=== PATIENT | male | born 1995 | race Caucasian/White ===

== ENCOUNTER 2018-05-06 23:42 | Observation (INO) ==
[2018-05-06] MEDS ORDERED: *HR* LORazepam 2 MG/ML VIAL ONE (23:55)
[2018-05-07] MEDS ORDERED: levETIRAcetam 1,000 MG in 0.9 % Sodium Chloride 100 ML IVPB ONE (00:01)
[2018-05-07] MEDS ORDERED: *HR* LORazepam 2 MG/ML VIAL ONE (00:16)
--- NOTE | 2018-05-07 00:24 | Emergency Department Note ---
Disposition Clinical Impression: Status epilepticus Disposition: Admitted As Inpatient Condition: Fair Time of Disposition: 07:36 General Adult HPI - General Chief complaint: ED Seizure Stated complaint: seizures Time Seen by Provider: 05/06/18 23:52 Source: patient, family, EMS Mode of arrival: ambulatory Limitations: altered mental status Nursing Notes Reviewed: Yes Vital Signs Reviewed: Yes - History of Present Illness HPI Narrative: Patient is a 22-year-old male with a past medical history of seizure disorder brought in by squad for seizures. According to EMS prior to arrival patient was at home resting in bed next to female [employer] certified network associate of 2 days she states that he began having shaking of his upper and lower extremities with eyes rolling to the back of his head and foaming at the mouth. States that the symptoms lasted for which he thinks was possibly 5 minutes. States he notified other people in the house who are aware that the patient had a seizure disorder in the squad was called. Upon arrival squad states the patient appeared to be in a postictal state. They state that in route patient did not have seizure activity until arriving in the EMS bay and the patient began having grand mal seizure-like activity and only lasted 45 seconds and the patient required no medications. Upon arrival to the room patient is postictal in appearance he is somnolent and difficult to arouse he does open his eyes to commands, however he does not follow commands with hand homeowner association manager or moving his toes. Pain Scale: 0 - Related Data Previous Rx's Medication Instructions Recorded Amoxicillin 875 mg PO BID #20 tablet 07/08/15 Hydrocodone/Acetaminophen [[place] 1 tab PO Q4H PRN #14 tab NS 01/03/16 5-325 Tablet] Ondansetron ODT [Zofran ODT] 4 mg PO Q6HR PRN #7 tab 01/03/16 Allergies Allergy/AdvReac Type Severity Reaction Status Date / Time No Known Allergies Allergy Verified 07/08/15 17:00 Limitations: ROS unobtainable due to patients medical condition Past Medical History - Past Medical History Medical history: Reports: seizures Psychiatric history: Reports: anxiety - Social History Smoking Status: Never smoker Smokeless Tobacco Status: No Alcohol use: Reports: none Drug use: Reports: none Physical Exam - General Limitations: altered mental status General appearance: lethargic (post-ictal) - Head Head exam: atraumatic, normocephalic, normal inspection - Eye Eye exam: Present: PERRL (4mm bilateral) - ENT ENT exam: normal exam, normal oropharynx - Neck Neck exam: Present: normal inspection, full ROM, trachea midline - Chest Chest inspection: Present: normal inspection, symmetric chest wall rise. Absent: rash - Respiratory Respiratory exam: Present: normal lung sounds bilaterally. Absent: respiratory distress, wheezes - Cardiovascular Cardiovascular exam: Present: regular rate, normal rhythm, normal heart sounds, +S1, +S2 - Abdominal Exam Abdominal exam: Present: soft, Non-Tender, normal bowel sounds - Extremities Exam Extremities exam: Present: normal inspection, full ROM, normal capillary refill. Absent: tenderness, pedal edema - Back Exam Back exam: Present: normal inspection, full ROM. Absent: tenderness, CVA tenderness (R), CVA tenderness (L) - Neurological Exam Neurological exam: Present: other (Limited due to post-ictal state) - Expanded Neurological Exam Cranial nerves: EOM function (II, III, IV, ): Normal Coma Scale Eye Opening: To Voice Coma Scale Motor Response: Localizes to Pain Coma Scale Verbal Response: Incomprehensible Coma Scale Total: 10 - Psychiatric Psychiatric exam: Present: other (unable to assess) - Skin Skin exam: Present: warm, dry, intact Course Course Narrative: Patient arrived from home by squad for seizure-like activity. Patient was lying in bed with a female that he had known for proximally 2 days of female states that the patient had 5 minutes of upper and lower extremity shaking and eyes joint back in head with foaming at the mouth. States she called the ambulance at that time there are friends of the patient in the home at that time they report a history of seizure disorder. In route the patient had an additional seizure that lasted less than 1 minute before entering the emergency department. While in the emergency department the patient had 2 seizures both approximately 2-3 minutes in length roughly. He required 2 mg dose of Ativan both times. At the time of the second seizure the patient was started on a loading dose of Keppra. - Reevaluation(s) Reevaluation #1: It was at this time that the patient had his fourth seizure. The patient was started on Keppra at this time. Time: 00:24 Reevaluation #2: Patient has had no further seizure activity since Keppra loading. Lab work, head CT and CXR were unremarkable. Upon review of charts patient was seen for seizure-like activity in March 2016 and given f/u. He also has an EEG ordered by Dr. Carrasco that appears to be outpatient. Family in the room is unsure of patient's medication and follow up history. Time: 01:52 Vital Signs Temperature 98.7 F 05/06/18 23:46 Pulse Rate 101 05/06/18 23:46 Respiratory Rate 16 05/06/18 23:46 Blood Pressure 140/72 05/06/18 23:46 O2 Sat by Pulse Oximetry 96 05/06/18 23:46 Temperature 98.6 F 05/07/18 05:55 Pulse Rate 94 05/07/18 05:55 Respiratory Rate 16 05/07/18 05:55 Blood Pressure 115/60 05/07/18 05:55 O2 Sat by Pulse Oximetry 97 05/07/18 05:55 Oxygen Delivery Oxygen Delivery Room Air Medical Decision Making - Medical Records Medical records reviewed: Yes I reviewed the patient's medical records. - Lab Data Lab results reviewed: Yes I reviewed the patient's lab results. Result diagrams: 05/07/18 01:14 05/07/18 01:14 Lab Results 05/07/18 05/07/18 05/07/18 Range/Units 00:48 00:48 01:14 WBC 9.1 (4.3-11.1) K/mcL RBC 5.14 (4.19-5.50) M/mcL Hgb 14.9 (12.9-16.9) g/dL Hct 42.9 (37.5-50.1) % MCV 83.5 (83.0-100.0) fL MCH 29.0 (28.0-33.3) pg MCHC 34.7 (31.6-35.5) g/dL RDW 11.7 (11.5-14.5) % Plt Count 190 (140-400) K/mcL MPV 11.4 (9.4-12.4) fL Immature Gran % 0.3 (0-4) % Seg Neutrophils % 88.5 % Lymphocytes % 7.3 % Monocytes % 3.6 % Eosinophils % 0.1 % Basophils % 0.2 % Neutrophils # 8.1 (1.6-8.9) K/mcL Lymphocytes # 0.7 (0.6-4.6) K/mcL Monocytes # 0.3 (0.0-1.3) K/mcL Eosinophils # 0.0 (0.0-0.6) K/mcL Basophils # 0.0 (0.0-0.2) K/mcL Sodium (136-145) mEq/L Potassium (3.5-5.1) mEq/L Chloride (98-107) mEq/L Carbon Dioxide (23-29) mEq/L BUN (6-20) mg/dL Creatinine (0.70-1.30) mg/dL Est GFR ( Amer) (> 60) Est GFR (Non-Af Amer) (> 60) BUN/Creatinine Ratio (6-26) Glucose (70-105) mg/dL Calculated Osmolality (280-300) Calcium (8.6-10.3) mg/dL Urine Color Yellow (Yellow) Urine Clarity Clear (Clear) Urine pH 5.0 (5.0-8.0) pH Units Ur Specific [place] 1.018 (1.010-1.025) Urine Protein Negative (Neg-Trace) mg/dL Urine Glucose (UA) Normal (Normal) mg/dL Urine Ketones Trace H (Negative) mg/dL Urine Blood Trace H (Negative) Urine Nitrite Negative (Negative) Urine Bilirubin Negative (Negative) Urine Urobilinogen Normal (Normal) mg/dL Ur Leukocyte Esterase Negative (Negative) Urine Microscopic RBC 0-3 (0-3) per hpf Urine Microscopic WBC 0-3 (0-3) per hpf Ur Squamous Epith Cells Many H (None-Few) per lpf Urine Bacteria None Seen (None-Few) per hpf Hyaline Casts Few (None-Few) per lpf Urine Opiates Screen Negative (Yjhcie=906) ng/mL Ur Barbiturates Screen Negative (Efdwpd=482) ng/mL Ur Phencyclidine Scrn Negative (Cutoff=25) ng/mL Ur Amphetamines Screen Negative (Owptsq=0106) ng/mL U Benzodiazepines Scrn Negative (Ehuhwz=525) ng/mL Urine Cocaine Screen Negative (Cutoff= 300) ng/mL U Marijuana (THC) Screen Negative (Cutoff = 50) ng/mL Ur Drug Screen Interp See Below 05/07/18 Range/Units 01:14 WBC (4.3-11.1) K/mcL RBC (4.19-5.50) M/mcL Hgb (12.9-16.9) g/dL Hct (37.5-50.1) % MCV (83.0-100.0) fL MCH (28.0-33.3) pg MCHC (31.6-35.5) g/dL RDW (11.5-14.5) % Plt Count (140-400) K/mcL MPV (9.4-12.4) fL Immature Gran % (0-4) % Seg Neutrophils % % Lymphocytes % % Monocytes % % Eosinophils % % Basophils % % Neutrophils # (1.6-8.9) K/mcL Lymphocytes # (0.6-4.6) K/mcL Monocytes # (0.0-1.3) K/mcL Eosinophils # (0.0-0.6) K/mcL Basophils # (0.0-0.2) K/mcL Sodium 138 (136-145) mEq/L Potassium 3.9 (3.5-5.1) mEq/L Chloride 108 H (98-107) mEq/L Carbon Dioxide 21 L (23-29) mEq/L BUN 7 (6-20) mg/dL Creatinine 0.99 (0.70-1.30) mg/dL Est GFR ( Amer) > 60 (> 60) Est GFR (Non-Af Amer) > 60 (> 60) BUN/Creatinine Ratio 7 (6-26) Glucose 131 H (70-105) mg/dL Calculated Osmolality 286 (280-300) Calcium 8.7 (8.6-10.3) mg/dL Urine Color (Yellow) Urine Clarity (Clear) Urine pH (5.0-8.0) pH Units Ur Specific [place] (1.010-1.025) Urine Protein (Neg-Trace) mg/dL Urine Glucose (UA) (Normal) mg/dL Urine Ketones (Negative) mg/dL Urine Blood (Negative) Urine Nitrite (Negative) Urine Bilirubin (Negative) Urine Urobilinogen (Normal) mg/dL Ur Leukocyte Esterase (Negative) Urine Microscopic RBC (0-3) per hpf Urine Microscopic WBC (0-3) per hpf Ur Squamous Epith Cells (None-Few) per lpf Urine Bacteria (None-Few) per hpf Hyaline Casts (None-Few) per lpf Urine Opiates Screen (Xblimh=135) ng/mL Ur Barbiturates Screen (Bfsnbi=506) ng/mL Ur Phencyclidine Scrn (Cutoff=25) ng/mL Ur Amphetamines Screen (Rahdgk=6846) ng/mL U Benzodiazepines Scrn (Bekrxr=121) ng/mL Urine Cocaine Screen (Cutoff= 300) ng/mL U Marijuana (THC) Screen (Cutoff = 50) ng/mL Ur Drug Screen Interp - Radiology Data Radiology results reviewed: Yes I reviewed the patient's radiology results. Chest X-Ray 05/07/18 00:00 IMPRESSION: Negative portable chest. D/ / Elvin Lucia MD / Elvin Lucia MD Interpreting Provider: Elvin Lucia MD Head CT 05/07/18 00:23 IMPRESSION: No acute intracranial abnormality. D/ / Toro Nunes / Toro Nunes Interpreting Provider: Toro Nunes - EKG Data EKG #1 EKG attestation: Yes I reviewed and interpreted this EKG. EKG results narrative: EKG done at 00:48 shows sinus rhythm at a rate of 96 bpm. Normal axis. Nonspecific ST T-wave abnormalities.
[2018-05-07 00:57] LABS: Bilirubin,Urine Negative (Negative); Blood,Urine Trace (Negative); Clarity,Urine Clear (Clear); Color,Urine Yellow (Yellow); Glucose,Urine (UA) Normal (Normal); Ketones,Urine Trace mg/dL (Negative); Leukocyte Esterase,Urine Negative (Negative); Nitrite,Urine Negative (Negative); Protein,Urine Negative (Neg-Trace); Specific Gravity,Urine 1.018 (1.010-1.025); Urobilinogen,Urine Normal (Normal)
[2018-05-07 00:58] LABS: Bacteria,Urine None Seen per hpf (None-Few); Hyaline Casts,Urine Few per lpf (None-Few); RBC,Urine 0-3 per hpf (0-3); Squamous Epithelial Cell,Urine Many per lpf (None-Few); WBC,Urine 0-3 per hpf (0-3)
[2018-05-07 01:07] LABS: Amphetamine Screen,Urine Negative ng/mL (Cutoff=1000); Barbiturate Screen,Urine Negative ng/mL (Cutoff=200); Benzodiazepines Screen,Urine Negative ng/mL (Cutoff=200); Cannabinoid Screen,Urine Negative ng/mL (Cutoff = 50); Cocaine Screen,Urine Negative ng/mL (Cutoff= 300); Opiate Screen,Urine Negative ng/mL (Cutoff=300); Phencyclidine Screen,Urine Negative ng/mL (Cutoff=25)
[2018-05-07 01:27] LABS: Basophils % 0.2 %; Eosinophils % 0.1 %; Hematocrit 42.9 % (37.5-50.1); Hemoglobin 14.9 g/dL (12.9-16.9); Immature Granulocytes % 0.3 % (0-4); Lymphocytes # 0.7 K/mcL (0.6-4.6); Lymphocytes % 7.3 %; Mean Corpuscular HGB Conc 34.7 g/dL (31.6-35.5); Mean Corpuscular Volume 83.5 fL (83.0-100.0); Mean Platelet Volume 11.4 fL (9.4-12.4); Monocytes # 0.3 K/mcL (0.0-1.3); Monocytes % 3.6 %; Neutrophils # 8.1 K/mcL (1.6-8.9); Platelet Count 190 K/mcL (140-400); Red Blood Count 5.14 M/mcL (4.19-5.50); Red Cell Distribution Width 11.7 % (11.5-14.5); Segmented Neutrophils % 88.5 %
[2018-05-07 01:46] LABS: BUN/Creatinine Ratio 7 (6-26); Blood Urea Nitrogen 7 mg/dL (6-20); Calcium 8.7 mg/dL (8.6-10.3); Carbon Dioxide 21 mEq/L (23-29); Chloride 108 mEq/L (98-107); Glucose 131 mg/dL (70-105); Osmolality,Calculated 286 (280-300); Potassium 3.9 mEq/L (3.5-5.1); Sodium 138 mEq/L (136-145); eGFR For Non-African Americans > 60 (> 60)
--- NOTE | 2018-05-07 02:21 | Emergency Department Note ---
Disposition Clinical Impression: Status epilepticus Disposition: Admitted As Inpatient Condition: Fair Referrals: NONE,PCP [Primary Care Provider] - Forms: ED Satisfaction Letter General Adult HPI - General Chief complaint: ED Seizure Stated complaint: seizures Time Seen by Provider: 05/06/18 23:52 Source: patient, family, EMS Mode of arrival: ambulatory Limitations: altered mental status Nursing Notes Reviewed: Yes Vital Signs Reviewed: Yes - History of Present Illness Pain Scale: 0 - Related Data Previous Rx's Medication Instructions Recorded Amoxicillin 875 mg PO BID #20 tablet 07/08/15 Hydrocodone/Acetaminophen [[place] 1 tab PO Q4H PRN #14 tab NS 01/03/16 5-325 Tablet] Ondansetron ODT [Zofran ODT] 4 mg PO Q6HR PRN #7 tab 01/03/16 Allergies Allergy/AdvReac Type Severity Reaction Status Date / Time No Known Allergies Allergy Verified 07/08/15 17:00 Past Medical History - Past Medical History Medical history: Reports: seizures Psychiatric history: Reports: anxiety - Social History Smoking Status: Never smoker Smokeless Tobacco Status: No Alcohol use: Reports: none Drug use: Reports: none Physical Exam - General Limitations: altered mental status General appearance: lethargic (post-ictal) Course - Consultations Consultation #1: Case discussed with the hospitalist, Dr. Alas, and he accepted admission of the patient. Time: 02:18 Vital Signs Temperature 98.7 F 05/06/18 23:46 Pulse Rate 101 05/06/18 23:46 Respiratory Rate 16 05/06/18 23:46 Blood Pressure 140/72 05/06/18 23:46 O2 Sat by Pulse Oximetry 96 05/06/18 23:46 Temperature 98.7 F 05/06/18 23:46 Pulse Rate 93 05/07/18 01:40 Respiratory Rate 18 05/07/18 01:40 Blood Pressure 120/73 05/07/18 01:40 O2 Sat by Pulse Oximetry 100 05/07/18 01:40 Oxygen Delivery Oxygen Delivery Oximizer Medical Decision Making - Medical Records Medical records reviewed: Yes I reviewed the patient's medical records. - Lab Data Lab results reviewed: Yes I reviewed the patient's lab results. Result diagrams: 05/07/18 01:14 05/07/18 01:14 Lab Results 05/07/18 05/07/18 05/07/18 Range/Units 00:48 00:48 01:14 WBC 9.1 (4.3-11.1) K/mcL RBC 5.14 (4.19-5.50) M/mcL Hgb 14.9 (12.9-16.9) g/dL Hct 42.9 (37.5-50.1) % MCV 83.5 (83.0-100.0) fL MCH 29.0 (28.0-33.3) pg MCHC 34.7 (31.6-35.5) g/dL RDW 11.7 (11.5-14.5) % Plt Count 190 (140-400) K/mcL MPV 11.4 (9.4-12.4) fL Immature Gran % 0.3 (0-4) % Seg Neutrophils % 88.5 % Lymphocytes % 7.3 % Monocytes % 3.6 % Eosinophils % 0.1 % Basophils % 0.2 % Neutrophils # 8.1 (1.6-8.9) K/mcL Lymphocytes # 0.7 (0.6-4.6) K/mcL Monocytes # 0.3 (0.0-1.3) K/mcL Eosinophils # 0.0 (0.0-0.6) K/mcL Basophils # 0.0 (0.0-0.2) K/mcL Sodium (136-145) mEq/L Potassium (3.5-5.1) mEq/L Chloride (98-107) mEq/L Carbon Dioxide (23-29) mEq/L BUN (6-20) mg/dL Creatinine (0.70-1.30) mg/dL Est GFR ( Amer) (> 60) Est GFR (Non-Af Amer) (> 60) BUN/Creatinine Ratio (6-26) Glucose (70-105) mg/dL Calculated Osmolality (280-300) Calcium (8.6-10.3) mg/dL Urine Color Yellow (Yellow) Urine Clarity Clear (Clear) Urine pH 5.0 (5.0-8.0) pH Units Ur Specific [place] 1.018 (1.010-1.025) Urine Protein Negative (Neg-Trace) mg/dL Urine Glucose (UA) Normal (Normal) mg/dL Urine Ketones Trace H (Negative) mg/dL Urine Blood Trace H (Negative) Urine Nitrite Negative (Negative) Urine Bilirubin Negative (Negative) Urine Urobilinogen Normal (Normal) mg/dL Ur Leukocyte Esterase Negative (Negative) Urine Microscopic RBC 0-3 (0-3) per hpf Urine Microscopic WBC 0-3 (0-3) per hpf Ur Squamous Epith Cells Many H (None-Few) per lpf Urine Bacteria None Seen (None-Few) per hpf Hyaline Casts Few (None-Few) per lpf Urine Opiates Screen Negative (Hlyexv=847) ng/mL Ur Barbiturates Screen Negative (Zdrizl=529) ng/mL Ur Phencyclidine Scrn Negative (Cutoff=25) ng/mL Ur Amphetamines Screen Negative (Pjivnq=4959) ng/mL U Benzodiazepines Scrn Negative ([place]=738) ng/mL Urine Cocaine Screen Negative (Cutoff= 300) ng/mL U Marijuana (THC) Screen Negative (Cutoff = 50) ng/mL Ur Drug Screen Interp See Below 05/07/18 Range/Units 01:14 WBC (4.3-11.1) K/mcL RBC (4.19-5.50) M/mcL Hgb (12.9-16.9) g/dL Hct (37.5-50.1) % MCV (83.0-100.0) fL MCH (28.0-33.3) pg MCHC (31.6-35.5) g/dL RDW (11.5-14.5) % Plt Count (140-400) K/mcL MPV (9.4-12.4) fL Immature Gran % (0-4) % Seg Neutrophils % % Lymphocytes % % Monocytes % % Eosinophils % % Basophils % % Neutrophils # (1.6-8.9) K/mcL Lymphocytes # (0.6-4.6) K/mcL Monocytes # (0.0-1.3) K/mcL Eosinophils # (0.0-0.6) K/mcL Basophils # (0.0-0.2) K/mcL Sodium 138 (136-145) mEq/L Potassium 3.9 (3.5-5.1) mEq/L Chloride 108 H (98-107) mEq/L Carbon Dioxide 21 L (23-29) mEq/L BUN 7 (6-20) mg/dL Creatinine 0.99 (0.70-1.30) mg/dL Est GFR ( Amer) > 60 (> 60) Est GFR (Non-Af Amer) > 60 (> 60) BUN/Creatinine Ratio 7 (6-26) Glucose 131 H (70-105) mg/dL Calculated Osmolality 286 (280-300) Calcium 8.7 (8.6-10.3) mg/dL Urine Color (Yellow) Urine Clarity (Clear) Urine pH (5.0-8.0) pH Units Ur Specific [place] (1.010-1.025) Urine Protein (Neg-Trace) mg/dL Urine Glucose (UA) (Normal) mg/dL Urine Ketones (Negative) mg/dL Urine Blood (Negative) Urine Nitrite (Negative) Urine Bilirubin (Negative) Urine Urobilinogen (Normal) mg/dL Ur Leukocyte Esterase (Negative) Urine Microscopic RBC (0-3) per hpf Urine Microscopic WBC (0-3) per hpf Ur Squamous Epith Cells (None-Few) per lpf Urine Bacteria (None-Few) per hpf Hyaline Casts (None-Few) per lpf Urine Opiates Screen (Ddyhcr=296) ng/mL Ur Barbiturates Screen (Jutwgo=145) ng/mL Ur Phencyclidine Scrn (Cutoff=25) ng/mL Ur Amphetamines Screen (Jiargo=9879) ng/mL U Benzodiazepines Scrn (Ayoxgh=037) ng/mL Urine Cocaine Screen (Cutoff= 300) ng/mL U Marijuana (THC) Screen (Cutoff = 50) ng/mL Ur Drug Screen Interp - Radiology Data Radiology results reviewed: Yes I reviewed the patient's radiology results. Chest X-Ray 05/07/18 00:00 IMPRESSION: Negative portable chest. D/ / Elvin Lucia MD / Elvin Lucia MD Interpreting Provider: Elvin Lucia MD Head CT 05/07/18 00:23 IMPRESSION: No acute intracranial abnormality. D/ / Toro uNnes / Toro Nunes Interpreting Provider: Toro Nunes Critical Care Time Critical Care Time: Yes Total Critical Care Time: 40 Attestation: Critical care performed: Time is exclusive of separately billable procedures. Time includes: direct patient care, patient reassessment, coordination of patient care, interpretation of data (laboratory data, radiology data, and respiratory data), review of patient's medical records, medical consultation and documentation of patient care. Procedures included in critical care time: Procedures excluded from critical care time: Attestation Statement - Attestation Attestation: I, Eric Hudson MD, personally evaluated this patient and discussed their management with the resident physician. I reviewed the resident's note and agree with the documented findings, medical decision making, and plan of care. 22-year-old male with known history of seizure disorder presents to the emergency department postictal after he had a seizure at home. He was with a female checker loader and they were in bed when he had a generalized seizure. She reports it lasted about 5-10 minutes. She called EMS. EMS reports that just before arrival here he had seizure activity while in the squad which lasted about 45 seconds. Patient was postictal on arrival to the emergency department and shortly after arrival he had a generalized grand mal tonic-clonic seizure which lasted about 1/2-2 minutes. He received Ativan 2 mg IV and the seizure activity resolved. A short time later while still postictal he had another generalized grand mal tonic-clonic seizure which lasted about 1-1-1/2 minutes. Again he received Ativan 2 mg IV and the seizure activity resolved. He was then given Keppra 1 g IV. He has had no further seizure activity while in the emergency department since receiving the Keppra. Patient unable to provide any history and his female checker loader does not really know anything about him. Later some friends arrived and they reported that he just started having seizures about 2 years ago. He is on some medication for the seizures but they are unsure if he takes it appropriately. EMS reported that he was on Neurontin for the seizures. On examination patient is a well-developed well-nourished young male. Postictal on arrival. Nonresponsive to verbal or physical stimuli. Eyes are deviated upward into the right. Breath sounds are clear and equal bilaterally. Heart regular with a mild tachycardia. Abdomen is soft with present bowel sounds. Labs reviewed. Head CT negative. Chest x-ray negative. Dr. Garrido discussed with the neurologist [employer] headgate operator, Dr. Broderick, and he recommended admission by the hospitalist and neurology will consult on the patient in the hospital. The hospitalist, Dr. Alas, was consulted and accepted admission of the patient.
[2018-05-07] MEDS ORDERED: *HR* HYDROcodone/Acet 5/325 mg TABLET PO PRN (03:27)
[2018-05-07] MEDS ORDERED: Naloxone 0.4 MG/ML INJ IVP PRN (03:27)
[2018-05-07] MEDS ORDERED: Ondansetron 4 MG/2 ML VIAL IVP PRN (03:36)
--- NOTE | 2018-05-07 03:41 | Internal Med History&Physical ---
<Rachelle Dao - Last Filed: 05/07/18 03:44> Date of Encounter: 05/07/18 Time of Encounter: 03:37 Internal Medicine - H&P: HPI Chief complaint: Seizure Admitted From: Emergency Dept History of present illness: Mr. Lara is a 22 year old male with significant PMHx of seizures for the past three years currently taking gabapentin for seizure prophylaxis admitted for seizures. During my assessment patient remained post-ictal therefore history of present illness was obtained from the ER physician and family members at bedside. According to the ED, the patient had a 5 minute generalized seizure this evening at home while resting in bed. EMS was called and he was no longer seizing when they arrived. When patient arrived to the ED he had 1 seizure that lasted approximately 45 seconds and spontaneously aborted with no medical intervention. After this patient had 2 more seizures each lasting approximately 2 minutes. Both of these seizures needed 2 mg IV ativan to be aborted. Patient has remained post-ictal since. The ED consulted neurology who agreed to load the patient with [address] head and chest xray completed in ED was within normal limits. Negative urine drug screen. No obvious electrolyte abnormalities. Past Med Surg Social Fam HX - Past Medical History Source: old records reviewed Medical history: seizures Psychiatric history: anxiety - Social History Smoking Status: Never smoker Smokeless Tobacco Status: No Alcohol use: none Drug use: none Internal Medicine - H&P: Meds RX: Amoxicillin 875 mg PO BID #20 tablet 07/08/15 [Rx] Hydrocodone/Acetaminophen [[place] 5-325 Tablet] 1 tab PO Q4H PRN #14 tab NS 01/03/16 [Rx] Ondansetron ODT [Zofran ODT] 4 mg PO Q6HR PRN #7 tab 01/03/16 [Rx] Allergy/AdvReac Type Severity Reaction Status Date / Time No Known Allergies Allergy Verified 07/08/15 17:00 ROS unobtainable: due to mental status All Systems PM: A 10-system review of systems was performed and is negative for pertinent findings except as documented above in the HPI. - Constitutional Vitals: Temp Pulse Resp BP Pulse Ox 98.7 F 93 18 120/73 100 05/06/18 23:46 05/07/18 01:40 05/07/18 01:40 05/07/18 01:40 05/07/18 01:40 Exam: Patient is somnolent and post-ictal - Head Head exam: Present: atraumatic, normal inspection, normocephalic - Eye Eye exam: Absent: conjunctival injection, scleral icterus Pupils: Present: PERRL. Absent: fixed - ENT ENT exam: Present: mucous membranes moist - Respiratory Respiratory exam: Present: CTAB - Cardiovascular Cardiovascular exam: Present: tachycardia. Absent: irregular rhythm - GI/Abdominal GI/Abdominal exam: Present: soft. Absent: distended, firm - Extremities Exam Extremities exam: Present: normal inspection, warm - Neurological Exam Additional comments: Patient post-ictal in the room, rolling around in the bed with no obvious focal deficit in extremities - Skin Skin exam: Present: warm Internal Med - H&P Results - Labs CBC & Chem 7: 05/07/18 01:14 05/07/18 01:14 Labs: Short CBC 05/07/18 Range/Units 01:14 WBC 9.1 (4.3-11.1) K/mcL Hgb 14.9 (12.9-16.9) g/dL Hct 42.9 (37.5-50.1) % Plt Count 190 (140-400) K/mcL Neutrophils # 8.1 (1.6-8.9) K/mcL BMP 05/07/18 01:14 Sodium 138 Potassium 3.9 Chloride 108 H Carbon Dioxide 21 L BUN 7 Creatinine 0.99 Glucose 131 H Calcium 8.7 Urine 05/07/18 Range/Units 00:48 Urine Color Yellow (Yellow) Urine Clarity Clear (Clear) Urine pH 5.0 (5.0-8.0) pH Units Ur Specific [place] 1.018 (1.010-1.025) Urine Protein Negative (Neg-Trace) mg/dL Urine Glucose (UA) Normal (Normal) mg/dL - Impressions ITS Impressions Chest X-Ray 05/07/18 00:00 IMPRESSION: Negative portable chest. D/ / Elvin Lucia MD / Elvin Lucia MD Interpreting Provider: Elvin Lucia MD Head CT 05/07/18 00:23 IMPRESSION: No acute intracranial abnormality. D/ / Toro Nunes / Toro Nunes Interpreting Provider: Toro Nunes - Assessment and plan (1) Seizure Current Visit: Yes Status: Acute Assessment and plan: Patient with known seizure disorder, supposedly taking gabapentin for seizure control Normal CT head in ED Normal MRI less than 3 months ago Patient loaded with keppra in ED Neuro consulted Seizure precautions Ativan PRN seizure activity (2) Post-ictal state Current Visit: Yes Status: Acute Assessment and plan: Patient remains post-ictal on exam Normal CT head in ED Normal MRI less than 3 months ago Neuro consulted - Time Spent With Patient Total time spent is greater than 50% in coordination of care (as documented) at patient's floor/unit and/or counseling patient: BradleyLaMariomitakimberlyn - Last Filed: 05/07/18 06:14> Date of Encounter: 05/07/18 Internal Medicine - H&P: HPI History of present illness: Mr. Lara is a 22 year old male All Systems PM: A 10-system review of systems was performed and is negative for pertinent findings except as documented above in the HPI. - Constitutional Vitals: Temp Pulse Resp BP Pulse Ox 98.6 F 94 16 115/60 97 05/07/18 05:55 05/07/18 05:55 05/07/18 05:55 05/07/18 05:55 05/07/18 05:55 Internal Med - H&P Results - Labs CBC & Chem 7: 05/07/18 01:14 05/07/18 01:14 Labs: Short CBC 05/07/18 Range/Units 01:14 WBC 9.1 (4.3-11.1) K/mcL Hgb 14.9 (12.9-16.9) g/dL Hct 42.9 (37.5-50.1) % Plt Count 190 (140-400) K/mcL Neutrophils # 8.1 (1.6-8.9) K/mcL BMP 05/07/18 01:14 Sodium 138 Potassium 3.9 Chloride 108 H Carbon Dioxide 21 L BUN 7 Creatinine 0.99 Glucose 131 H Calcium 8.7 Urine 05/07/18 Range/Units 00:48 Urine Color Yellow (Yellow) Urine Clarity Clear (Clear) Urine pH 5.0 (5.0-8.0) pH Units Ur Specific [place] 1.018 (1.010-1.025) Urine Protein Negative (Neg-Trace) mg/dL Urine Glucose (UA) Normal (Normal) mg/dL - Impressions ITS Impressions Chest X-Ray 05/07/18 00:00 IMPRESSION: Negative portable chest. D/ / Elvin Lucia MD / Elvin Lucia MD Interpreting Provider: Elvin Lucia MD Head CT 05/07/18 00:23 IMPRESSION: No acute intracranial abnormality. D/ / Toro Nunes / Toro Nunes Interpreting Provider: Toro Nunes - Time Spent With Patient Total time spent is greater than 50% in coordination of care (as documented) at patient's floor/unit and/or counseling patient: - Attending Attestation I performed a history and physical exam of the patient and discussed management with the resident. I reviewed the resident's note and agree with the documented findings and plan of care. Alireza James Lara who is a 22-year-old man with known seizure disorder who is brought in by ambulance after suffering a seizure at home. He had another seizure episode on rounds witnessed by EMS lasting about 45 seconds. He was notably postictal upon arrival to the ED and subsequently suffered 2 more generalized grand mal tonic-clonic seizure lasting just under 2 minutes. He received 4 mg of lorazepam and was given a loading dose of levetiracetam. No further seizure activity was no witnessed in the ER and is now admitted for further observation in a monitored setting. It is reported that he developed seizures about 2 years ago and it is unclear if he has been adherent to his medications. Physical exam remarkable for well- developed white male sleeping comfortably; popular rash noted on back. Unable t o evaluate psychiatric state due to somnolence. Lab work was grossly unremarkable. Unable to obtain family history due to current mental status. Will place on fall, seizure and aspiration precautions. Maintenance fluids. Lorazepam prn. Verify home medications. Neurology evaluation. Rest of management per residents note. KAYLA CONWAY.
[2018-05-07] MEDS ORDERED: *HR* LORazepam 2 MG/ML VIAL IVP PRN (03:45)
[2018-05-07] MEDS: *HR* Heparin 5,000 UNIT/ML VIAL SQ SCH ×2 (06:18→17:55)
[2018-05-07] MEDS: 0.9 % Sodium Chloride 1,000 ML IVC SCH ×2 (06:18→16:17)
--- NOTE | 2018-05-07 09:35 | Neurology - Consult Note ---
Addendum entered and electronically signed by Josh Broderick MD 05/07/18 14:44: Patient seen and examined and i agree with Dr. Jesús Del Castillo's history taking, physical examination assessment and plan outline below. Please note that the physical examination portion is limited due to patient being very sleepy and full physical examination is document in the report made by me. Original Note: Date of Encounter: 05/07/18 Time of Encounter: 09:34 Assessment and Plan (1) Seizure Current Visit: Yes Status: Acute - Patient presented after having a seizure at home - On arrival to EMS [place], patient had a grand mal seizure-like activity, which lasted 45 seconds - Per chart review, while patient was in the emergency department, he had a total of 2 seizures, both approximately 2-3 minutes in length - Required a dose of Ativan 2 mg both times - At the time of the second seizure, patient was started on a loading dose of Keppra, 1000 mg - CT scan of the head showed no acute intracranial abnormality - Known history of seizures for the last 3 years; last one was approximately one year ago Plan: - EEG is ordered for this morning - Continue seizure precautions - Ativan when necessary for seizure activity - Patient will likely require skilled nursing medical therapy on seizure medication (2) Post-ictal state Current Visit: Yes Status: Acute - Plan as above History of Present Illness HPI: Gómez Lara is a 22 year old male with a PMH of seizure disorder for the last 3 years who presented to [facility] ED on 05/06/18 for seizures. According to EMS, prior to arrival the patient was at home resting in his bed when he began shaking in his upper and lower extremities with his eyes rolling to the back of his head and foaming at the mouth. Symptoms lasted approximately 5 minutes. This was observed by a female prepress operator. When EMS arrived, patient appeared to be in a postictal state. When patient arrived into the EMS [place], patient began having grand mal seizure-like activity, which lasted 45 seconds. He required no medications at that time. Per chart review, patient had a total of 2 seizures, both approximately 2-3 minutes in length while in the ER. He required 2 mg dose of Ativan both times. At the time of the second seizure, patient was started on a loading dose of Keppra. Vital signs on arrival were significant for an elevated heart rate at 101. All other vitals were within normal limits. CT sca n of the head demonstrated no acute intracranial abnormality. Toxicology was negative. EEG has been ordered; currently pending. Patient is currently on Ativan 2 mg IV as needed. Patient seen and examined at bedside; patient is very somnolent and lethargic. Answers very few questions, then falls back asleep. Unable to stay awake for more than 10-20 seconds. Guardian is present at bedside, as well as witnesses from the night the patient began seizing. According to them, patient had approximately 5-10 episodes of seizure-like activity before coming into the hospital. Per the guardian, patient's last seizure was approximately 1 year ago. He has not had any seizure activity in the year leading up to the present admission. She states that he has been under a great deal of stress lately due to a dental procedure that he has coming up. Review of systems is limited, as patient is not able to answer many questions. He states that he is feeling fine. Past Med Surg Social Fam HX - Past Medical History Medical history: seizures Psychiatric history: anxiety - Social History Smoking Status: Never smoker Smokeless Tobacco Status: No Alcohol use: none Drug use: none Medications and Allergies Baclofen [Lioresal] 10 mg PO BID 05/07/18 [History] Allergy/AdvReac Type Severity Reaction Status Date / Time No Known Allergies Allergy Verified 07/08/15 17:00 ROS unobtainable: due to mental status (Patient is very somnolent; cannot stay awake for more than 10-20 seconds) All Systems: The remainder of the systems were reviewed and are negative Physical Examination - Vital Signs Vital Signs: Initial Vital Signs Temp Pulse Resp BP Pulse Ox 98.7 F 101 16 140/72 96 05/06/18 23:46 05/06/18 23:46 05/06/18 23:46 05/06/18 23:46 05/06/18 23:46 - Exam Exam: Exam is limited due to the patient being somnolent No acute distress No bite ward observed on the tongue - Constitutional General appearance: comfortable, other (Somnolent) - Neurologic Mental Status Examination: drowsy (Exam is limited; no acute distress), lethargic Results - Laboratory Findings CBC and BMP: 05/07/18 01:14 05/07/18 01:14 Abnormal lab findings: Abnormal lab results Chloride 108 mEq/L (98-107) H 05/07/18 01:14 Carbon Dioxide 21 mEq/L (23-29) L 05/07/18 01:14 Glucose 131 mg/dL (70-105) H 05/07/18 01:14 Urine Ketones Trace mg/dL (Negative) H 05/07/18 00:48 Urine Blood Trace (Negative) H 05/07/18 00:48 Ur Squamous Epith Cells Many per lpf (None-Few) H 05/07/18 00:48 Consult Discharge Plan - Plan Referrals: Susan Thompson MD [Non-Partnered Physician] - 05/21/18 9:30 am
--- NOTE | 2018-05-07 12:54 | EEG/EMG/Oth Biometrics Report ---
EEG Procedure Report Date of procedure: 05/07/18 EEG Procedure: Routine EEG Procedure Note: This EEG was acquired with standard international 10-20 electrode placement system plus EKG recording. The background activity during this tracing was characterized by the presence of posteriorly dominant alpha rhythm with best frequency up to 11 Hz. The background activity was reactive to eye openings. Sleep stages were characterized by the presence of background and fragmentation, K complexes, vertex waves, and sleep spindles. There are no electrographic seizures identified during this tracing. There are no epileptiform discharges or focal slowing noted during this tracing. Photic stimulation produced no abnormalities. Hyperventilation procedure was not performed during the study. EKG tracing showed no significant cardiac dysrhythmias. Impression: This is a normal awake and asleep EEG. Clinical correlation: Normal EEGs, however, do not exclude epilepsy. Clinical correlation is advised.
--- NOTE | 2018-05-07 14:33 | Neurology - Consult Note ---
Date of Encounter: 05/07/18 Time of Encounter: 14:18 Assessment and Plan (1) Seizure Current Visit: Yes Status: Acute Patient has developed few recurrent seizure likely with motor activity and postictal phenomenon initially concerned for status epilepticus but Ativan IVx1 seemed to controlled the seizure and patient has had no more recurrent seizure activity over night and he is current on Keppra 500mg bid after 1g loading dose. Patient has similar seizures in the last three years and he certainly has had recurrent episodes therefore would at time start him on antiepileptic therapy, care home. Will keep on 500mg of keppra bid and he is to follow up with Dr. Mati Carrasco in the next few weeks to adjust dosage or pursue further testing if necessary. No significant provoking factors identified at this time. Laboratory testing including electrolytes, CBC and uringe drug screen are unremarkable. Patient is still drowsy but from neurology standpoint he is okay to be discharged. History of Present Illness Chief complaint: recurrent seizure activity HPI: Mr. Lara is a 22 year old male PMH significant for history of seizure disorder not on antiepileptic therapy, spasticiity, who presented to the ER with few recurrent seizure like activity. Patient has known history of seizure like activity that occurred about 3 years ago. Patient is currently very drowsy and won't not provide useful information. Her aunt is here at the bedside but she did not witness the episodes. Reportedly the patient developed seizure likely activity and was postictal. But no tongue biting and urinary incontinence noted. No significant provoking factors reported. Aunt mentions that when the patient was born his mother were on drugs and used alcohol and smoked. Patients last known seizure was about one year ago. That was the reason he was not suggested antiepileptic therapy when he saw Dr. Mati Carrasco for spasticity who started him on Baclofen during 02/2018. Had MRI of brain done in 12/2017 which showed no acute intracranial abnormality. EEG done today showed normal awake and asleep EEG In the ER, patient CT of head showed no acute intracranial abnormality. He was given loading dose of Keppra 1000mg IVx1 and then continued Keppra 500mg bid. Past Med Surg Social Fam HX - Past Medical History Medical history: seizures Psychiatric history: anxiety - Social History Smoking Status: Never smoker Smokeless Tobacco Status: No Alcohol use: none Drug use: none Medications and Allergies Baclofen [Lioresal] 10 mg PO BID 05/07/18 [History] Allergy/AdvReac Type Severity Reaction Status Date / Time No Known Allergies Allergy Verified 07/08/15 17:00 All Systems: The remainder of the systems were reviewed and are negative Physical Examination - Vital Signs Vital Signs: Initial Vital Signs Temp Pulse Resp BP Pulse Ox 98.7 F 101 16 140/72 96 05/06/18 23:46 05/06/18 23:46 05/06/18 23:46 05/06/18 23:46 05/06/18 23:46 - Constitutional General appearance: comfortable (Patient very drowsy but arousable) - Neurologic Sensorimotor examination: other (Grossly intact) Detailed motor examination: grossly full strength in all extremities (Patient is very drowsy and he moves all extremities when stimulated. has spasticity to legs which is chronic in nature) Detailed sensory examination: other (Grossly intact) Reflexes: Biceps: 3+, Triceps: 3+, Brachioradialis: 3+, Patella: 3+, Achilles: 3+ Mental Status Examination: drowsy (Patient easily arousable but does not seem to be interested in talking. Drift back to sleep when not stimulated), opens eyes to voice Cranial nerve examination: PERRL, EOMI, visual rios intact (Unable to assess due to drowsiness), corneal reflexes brisk symmetrically, sensory to face intact, mastication intact, no facial asymmetry is present, no dysarthria, hearing is intact symmetrically, soft palate elevates bilaterally upon phona tion, gag reflex intact, flexes SCM and trapezius muscles symmetrically with full power, tongue protrudes midline, no atrophy or facial fasiculations present Results - Laboratory Findings CBC and BMP: 05/07/18 01:14 05/07/18 01:14 Abnormal lab findings: Abnormal lab results Chloride 108 mEq/L (98-107) H 05/07/18 01:14 Carbon Dioxide 21 mEq/L (23-29) L 05/07/18 01:14 Glucose 131 mg/dL (70-105) H 05/07/18 01:14 Urine Ketones Trace mg/dL (Negative) H 05/07/18 00:48 Urine Blood Trace (Negative) H 05/07/18 00:48 Ur Squamous Epith Cells Many per lpf (None-Few) H 05/07/18 00:48 - Diagnostic Findings Additional findings: EXAMINATION: CT OF THE HEAD WITHOUT CONTRAST 05/07/2018 1:08 am TECHNIQUE: CT of the head was performed without the administration of intravenous contrast. Dose modulation, iterative reconstruction, and/or weight based adjustment of the mA/kV was utilized to reduce the radiation dose to as low as reasonably achievable. COMPARISON: 09/18/2014. HISTORY: ORDERING SYSTEM PROVIDED HISTORY: status epilepticus FINDINGS: Mild to moderate motion artifact challenge evaluation. BRAIN/VENTRICLES: There is no acute intracranial hemorrhage, mass effect or midline shift. No abnormal extra-axial fluid collection. The hughes-white differentiation is maintained without evidence of an acute infarct. There is no evidence of hydrocephalus. ORBITS: The visualized portion of the orbits demonstrate no acute abnormality. SINUSES: The visualized paranasal sinuses and mastoid air cells demonstrate no acute abnormality. SOFT TISSUES/SKULL: No acute abnormality of the visualized skull or soft tissues. CT/CT head/brain wo con IMPRESSION: No acute intracranial abnormality. D/ / Toro Nunes / Toro Nunes Interpreting Provider: Toro Nunes Consult Discharge Plan - Plan Referrals: Susan Thompson MD [Non-Partnered Physician] - 05/21/18 9:30 am
--- NOTE | 2018-05-07 17:57 | Event Note ---
Date of Encounter: 05/07/18 Time of Encounter: 17:00 H&P reviewed. Patient with known history of seizure presented with breakthrough seizure. Remains drowsy although arousable by tactile stimulus. Labs and imaging studies unremarkable. MRI 01/2018 also WNL. Was given keppra and ativan overnight without further episodes. Given his mental status, will keep him overnight with neurology consult and EEG. Probably d/c tomorrow morning if remains seizure free.
[2018-05-07] MEDS: levETIRAcetam 250 MG TABLET PO SCH (18:40)
[2018-05-08] MEDS: Ibuprofen 400 MG TABLET PO PRN ×2 (00:43→09:26)
[2018-05-08] MEDS: *HR* Heparin 5,000 UNIT/ML VIAL SQ SCH (05:45)
[2018-05-08] MEDS: levETIRAcetam 250 MG TABLET PO SCH (05:48)
--- NOTE | 2018-05-08 10:30 | Discharge Summary ---
- NOTES TO OUTPATIENT PROVIDER Notes to Outpatient Provider: Patient with known seizure disorder was admitted for breakthrough seizure. Required multiple rounds of IV Ativan as well as loading dose of Keppra. Remained seizure free during his stay. Seen in consultation with neurology and will be discharged home on Keppra 500 twice a d ay and outpatient Neurology follow up. Date of Encounter: 05/08/18 Time of Encounter: 07:45 - Discharge Diagnosis (1) Seizure Priority: Primary Status: Acute Hospital course: Mr. Lara is a 22 year old male with known seizure disorder was admitted for breakthrough seizure. Required multiple rounds of IV Ativan as well as loading dose of Keppra. Remained seizure free during his stay. EEG WNL. Seen in consultation with neurology and will be discharged home on Keppra 500 twice a day and outpatient Neurology follow up. Discharge discussed with: patient, nurse - Time Spent with Patient Total time spent providing and/or coordinating discharge services: 31 mins - Discharge Medications Prescriptions: levETIRAcetam [Keppra] 500 mg PO Q12HR #60 tablet Home Medications: Baclofen [Lioresal] 10 mg PO BID 05/07/18 [History] levETIRAcetam [Keppra] 500 mg PO Q12HR #60 tablet 05/08/18 [Rx] Allergies/Adverse Reactions: Allergy/AdvReac Type Severity Reaction Status Date / Time No Known Allergies Allergy Verified 07/08/15 17:00 Date of admission: 05/07/18 04:11 Primary care physician: PCP NONE Consults: 05/07/18 02:02 Consult to Neurology [CONS] Stat Consulting Provider: Neurology [facility] Reason for Consult: seizure Time Notified: 02:02 Call Completed: Yes 05/07/18 12:06 Consult to Interpret Exam [CONS] Routine Consulting Provider: Josh Broderick Consult to Interpret Exam: Interpret EEG - Constitutional Vitals: Temp Pulse Resp BP Pulse Ox 98.2 F 68 18 116/66 96 05/08/18 08:11 05/08/18 08:11 05/08/18 08:11 05/08/18 08:11 05/08/18 08:11 Exam: VS reviewed General: not in distress, easily arousable Respiratory : CTAB Cardiovascular normal rate and rhythm, no murmur GI: soft, nontender Neuro: CN II-XII intact, power and sensation fully intact in all 4 limbs. No cerebellar signs, pronator drift -ve, Babinski downgoing bilaterally - Patient Status Disposition: Home, Self-Care Condition: Fair Functional capacity at discharge: independent ambulation Overall status at discharge: patient is progressing back to baseline - Discharge Instructions Follow Up With: Susan Thompson MD [Non-Partnered Physician] - 05/21/18 9:30 am Mati Carrasco DO [Partnered Physician] - Additional Instructions: Start keppra 500mg BID Follow up with Dr. Carrasco as outpatient - Diet and Activity Activity: resume usual activities as tolerated Diet: advance to your usual diet
[2018-05-08 11:35] VITALS: BP 116/71
--- NOTE | 2018-05-08 16:38 | Neurology Progress Note ---
Date of Encounter: 05/08/18 Time of Encounter: 11:00 Assessment and Plan (1) Seizure Status: Acute Patient is started on Keppra 500 mg twice a day for antiepileptic therapy. During the hospital stay, the patient developed episodes of transient staring spell with altered mental status however, observation and testing during these spells indicate possible nonepileptic events. At the time of this discharge, the patient's vital signs are normal and he has nonfocal neurological e xamination except chronic findings of spasticity. In light of these recurrent spells of altered mental status I discussed with the mother that these episodes likely are not epileptic in nature but final diagnoses would include further long-term EEG testing in the future or in a facility where long-term EEG monitoring with the video capturing is available. This can certainly not be don in this medical facility. We will keep the patient on Keppra 500 mg twice a day and he is to follow-up with his primary neurologist for monitoring and adjustment of his antiepileptic therapy if necessary. It is my opinion that if these staring spells persist in the future, he may benefit from a long-term am bulatory or inpatient EEG monitoring. Subjective Principal diagnosis: seizure like activity Interval history: I was requested by the medical hospitalist to evaluate the patient before he could be discharged. As a matter fact, the patient was planned to be discharged this morning however, the patient developed few episodes of staring spells that concerned his mother. The patient reports no recurrent seizure activity overnight but during the hospital stay, the patient appears to be rather sleepy but no recurrent seizures were observed since he started taking Keppra 500 mg twice a day. However, this morning his mother witnessed few episodes of staring spells where he would not responsive which was going on few times that concerned her. I was called to evaluate the patient when the patient was still having such episodes. When I talked with the patient, the patient was turned his head toward the left side but not making eye contact this would last a few seconds upon repeated verbal request the patient would finally responded. The patient would also have intermittent staring spell with his eyes wide open and patient appearing looking upward not responding. However, during the staring spell the patient does respond to visual threat by blinking his eyes. However, after repeated testing the patient would no longer respond to visual threat. During these episodes, the patient's vital signs are normal. No motor activity was observed. The presentation of such episodes suspect nonepileptic events. Also the patient does appear to be less interested in going home. Between this episodes the patient has no significant mental status changes and he was able to communicate and tells me that he does not want to walk because he does not have his pants on. Patient has no focal neurological deficits. Objective - Constitutional Vitals: Temp Pulse Resp BP Pulse Ox 99.5 F 75 18 116/71 94 05/08/18 11:32 05/08/18 11:32 05/08/18 11:32 05/08/18 11:32 05/08/18 11:32 - Neurological Exam Sensorimotor examination: Present: other (Grossly intact) Motor Examination: Present: grossly full strength in all extremities (Patient is very drowsy and he moves all extremities when stimulated. has spasticity to legs which is chronic in nature) Motor examination - right side: 5/5: deltoids, biceps, triceps, wrist flexion, wrist extension, supervisor plasma, hip flexors, tibialis Anterior, quadriceps, toe extension (EHL), plantarflexion Motor examination - left side: 5/5: deltoids, biceps, triceps, wrist flexion, wrist extension, hip flexors, supervisor plasma, quadriceps, tibialis Anterior, toe extension (EHL), plantarflexion Sensation intact: Present: other (Grossly intact) Reflexes: Biceps: 2+, Triceps: 2+, Brachioradialis: 2+, Patella: 2+, Achilles: 2+ Mental Status Examination: Present: awake, alert, oriented to person, oriented to place, oriented to time, follows commands appropriately, answers questions appropriately, no agnosia, no aphasia, no aproxia, follows simple commands (As mentioned above, during the episodes of staring spells the patient does blink to visual threat however, he would not respond to verbal commands.) Cranial nerve examination: Present: PERRL, EOMI, visual rios intact (Unable to assess due to drowsiness), corneal reflexes brisk symmetrically, sensory to face intact, mastication intact, no facial asymmetry is present, no dysarthria, hearing is intact symmetrically, soft palate elevates bilaterally upon phonation, gag reflex intact, flexes SCM and trapezius muscles symmetrically with full power, tongue protrudes midline, no atrophy or facial fasiculations present Results - Laboratory Findings CBC and BMP: 05/07/18 01:14 05/07/18 01:14 Abnormal lab findings: Abnormal lab results Chloride 108 mEq/L (98-107) H 05/07/18 01:14 Carbon Dioxide 21 mEq/L (23-29) L 05/07/18 01:14 Glucose 131 mg/dL (70-105) H 05/07/18 01:14 Urine Ketones Trace mg/dL (Negative) H 05/07/18 00:48 Urine Blood Trace (Negative) H 05/07/18 00:48 Ur Squamous Epith Cells Many per lpf (None-Few) H 05/07/18 00:48 Consult Discharge Plan - Plan Additional Instructions: Start keppra 500mg BID Follow up with Dr. Carrasco as outpatient Referrals: Susan Thompson MD [Non-Partnered Physician] - 05/21/18 9:30 am Mati Carrasco DO [Partnered Physician] - 05/26/18 10:00 am Prescriptions: levETIRAcetam [Keppra] 500 mg PO Q12HR #60 tablet
--- NOTE | 2018-05-09 18:08 | Electrocardiograph Report ---
[address] [address] Test Date: 2018-05-07 Pat Name: Gómez Lara Department: [id number] Room: 2N06 Gender: M [employer] Professor: : 1995 Requested By: Jimy Garrido Order Number: [id number] Reading MD: Nora Dela Cruz Measurements Intervals [place] Rate: 96 P: 77 [place]: 145 QRS: 83 QRSD: 88 T: 62 QT: 334 QTc: 422 Interpretive Statements Sinus rhythm Electronically Signed On 05-09-2018 18:07:30 EST by Nora Dela Cruz
== END 2018-05-08 15:06 | disposition home or self-care (01) ==
LOC: EMEROOARM 23:42 → 2NNU 23:42 → SUATTDRO 05-07 04:11 → 2NNU 05-07 05:46
PROVIDERS: ADMIT Internal Medicine; ATTEND Internal Medicine